=== PATIENT | male | born 1955 | race Caucasian/White ===

== ENCOUNTER → 2022-11-09 | Outpatient (CLI) | payer MEDICARE, MEDICAID, SELFPAY ==
--- NOTE | 2022-11-09 12:41 | US_ITS ---
INDICATION: Thyroid nodule noted on cervical spine CT EXAMINATION: Ultrasound US Thyroid (eg thyroid, parathyroid, parotid) TECHNIQUE: Marcos scale and color doppler imaging was performed of the thyroid gland. COMPARISON: None. FINDINGS: RIGHT THYROID LOBE: 4.2 x 2.3 x 2.7 cm. Mildly heterogeneous echotexture with normal vascularity. [ Nodules: 1. Inferior thyroid 2.5 x 2.5 x 2.3 cm solid hypoechoic nodule wider than tall with smooth margins and no calcification, TI RADS 4. LEFT THYROID LOBE: 4.9 x 2.0 x 2.5 cm. Mildly heterogeneous echotexture with normal vascularity. [ 1. . Inferior mid thyroid 0.6 x 0.3 x 0.6 cm mixed cystic solid hypoechoic nodule wider than tall smooth margins and no calcifications, TI RADS 3 2. Inferior mid thyroid 0.4 x 0.3 x 0.5 cm cm almost completely cystic hypoechoic nodule, wider than tall with smooth margins and no calcifications, TI RADS 2 ISTHMUS: 0.5 cm. Heterogeneous echotexture. No thyroid nodules are present. US/Thyroid IMPRESSION: Multinodular goiter with dominant right inferior thyroid 2.5 cm TI RADS 4 lesion for which fine-needle aspiration for histopathologic diagnosis is recommended Electronically Signed: Farhan Curry MD at 9:36 EDT Reading Location ID and State: [id number] / [place] Tel , Service support ,
== END | disposition home or self-care (01) ==
LOC: US 12:41
PROVIDERS: PCP Internal Medicine; Referring Provider Psychiatry & Neurology Neurology; Visit Provider Psychiatry & Neurology Neurology
DX: E04.1 Nontoxic single thyroid nodule (principal)
CPT/HCPCS: 76536

== ENCOUNTER → 2023-04-04 | Outpatient (CLI) | payer MEDICARE, MEDICAID, SELFPAY ==
[2023-04-04 18:22] LABS: Free T3 1.9 pg/mL (2.18-3.98); Thyroid Stim Hormone (TSH) 0.85 uIU/mL (0.358-3.74)
== END | disposition home or self-care (01) ==
LOC: MTLAB 14:42
PROVIDERS: PCP Internal Medicine; Referring Provider Psychiatry & Neurology Neurology; Visit Provider Psychiatry & Neurology Neurology
DX: E04.1 Nontoxic single thyroid nodule (principal); F03.90 Unspecified dementia, unspecified severity, without behavioral disturbance, psychotic disturbance, mood disturbance, and anxiety
CPT/HCPCS: 36415; 84439; 84443; 84481

== ENCOUNTER 2025-02-13 09:46 | Outpatient (RCR) | payer MEDICARE, MEDICAID, SELFPAY ==
[2025-02-13 10:37] VITALS: BP 146/69; PULSE 48; RESP 18; TEMP 35.8
--- NOTE | 2025-02-13 14:09 | WC ---
PHOTO-LEFT MED 02/13/25
--- NOTE | 2025-02-13 14:12 | WC ---
PHOTO-LEFT LATERAL LE CLUSTER 02/13/25
--- NOTE | 2025-02-13 14:13 | WC ---
PHOTO-LEFT POST LE 02/13/25
--- NOTE | 2025-02-13 14:16 | WC ---
PHOTO-RIGHT MED 02/13/25
--- NOTE | 2025-02-13 14:17 | WC ---
PHOTO-RIGHT POST LE 02/13/25
--- NOTE | 2025-02-13 16:58 | PCM.WC.HP ---
History of Present Illness Date of Service: 02/13/25 Chief Complaint: Bilateral lower extremity ulceration History of Wound: Mr. Cutler is a 69-year-old referred to the wound center following recent vascular procedure. He reports chronic recurrent lower extremity ulcerations which has been ongoing for at least 40 years. Had been following up at a wound center in [place] but has not done that in a few years....? Had a vascular procedure at [facility] about 6 weeks ago and following which, was referred to this facility. He states that for the last 40 years, he has recurrent ulcerations which have been managed at his facility. Has been told that he has calcium deposits in his extremities. Has not been evaluated by dermatology and this is something that he is not open to. Documented history of diabetes mellitus, he is unsure of his control. He states that he feels well otherwise. [facility] Medical History (Updated 02/13/25 @ 17:[address] Josh Green MD) Cutaneous calcification Nonhealing ulcer of multiple sites of right lower extremity with fat layer exposed Nonhealing ulcer of multiple sites of left lower extremity with fat layer exposed Venous ulcer-leg syndrome, bilateral Drooling Cerebrovascular disease Chest pain, unspecified Rhabdomyolysis Edema, unspecified Candidiasis, unspecified History of falling Chronic venous insufficiency Hyperlipidemia Myositis, unspecified Hypotension, unspecified Elevated liver enzymes Weakness Obstructive sleep apnea (adult) (pediatric) Drug-induced obesity Benign essential hypertension Major depressive disorder, recurrent, unspecified Type 2 diabetes mellitus without complications Home Medications ?Medication ?Instructions ?Recorded ?Last Taken ?Type aspirin 81 mg chewable tablet 81 mg PO DAILY 03/19/20 Unknown History fexofenadine 180 mg tablet 180 mg PO DAILY 03/19/20 Unknown History (Rose Mary Allergy) simvastatin 40 mg tablet 40 mg PO QHS 03/19/20 Unknown History tamsulosin 0.4 mg capsule (Flomax) 0.4 mg PO QHS 03/19/20 Unknown History polyethylene glycol 3350 17 17 g PO DAILY 10/26/20 Unknown History gram/dose oral powder (Miralax) donepezil 10 mg tablet 10 mg PO DAILY 01/25/21 Unknown History bisacodyl 5 mg tablet,delayed 5 mg PO QDAY PRN constipation 04/01/24 Unknown History release cyanocobalamin (vitamin B-12) 2,000 mcg PO QDAY 04/01/24 Unknown History 1,000 mcg tablet ergocalciferol (vitamin D2) 1,250 1,250 mcg PO .COMPLEX 04/01/24 Unknown History mcg (50,000 unit) capsule fluoxetine 40 mg capsule 40 mg PO QDAY 04/01/24 Unknown History furosemide 20 mg tablet 40 mg PO QDAY 04/01/24 Unknown History glucagon 1 mg solution for 1 mg subcut ONCE PRN 04/01/24 Unknown History injection hydrocodone-acetaminophen 5-325mg 1 tab PO Q6H PRN 04/01/24 Unknown History 5mg-325mg loperamide 2 mg capsule 2 mg PO QDAY PRN loose stools 04/01/24 Unknown History magnesium hydroxide 2,400 mg/10 mL 30 ml PO QDAY PRN 04/01/24 Unknown History oral suspension (Milk Of Magnesia Concentrated) memantine 14 mg capsule 14 mg PO DAILY #30 ea 04/01/24 Unknown Rx sprinkle,extended release 24hr montelukast 10 mg tablet 10 mg PO QHS 04/01/24 Unknown History multivitamin with minerals 1 tab PO QDAY 04/01/24 Unknown History (Multiple Vitamin-Minerals tablet) oxybutynin chloride 10 mg 5 mg PO BID 04/01/24 Unknown History tablet,extended release 24 hr (Ditropan XL) phenazopyridine 200 mg tablet 200 mg PO TID bladder spasms 04/01/24 Unknown History sennosides 8.6 mg tablet 8.6 mg PO BID PRN 04/01/24 Unknown History sertraline 100 mg tablet 100 mg PO QHS 04/01/24 Unknown History trazodone 100 mg tablet 100 mg PO QHS #30 tabs 04/01/24 Unknown Rx Lactobacillus acidophilus 1 tab PO BID PRN 09/30/24 Unknown History (Acidophilus chewable tablet) acetaminophen 325 mg capsule 650 mg PO Q6H PRN fever or pain 09/30/24 Unknown History (Tylenol) hydrocortisone acetate 25 mg 25 mg DC Q8H PRN 09/30/24 Unknown History rectal suppository (Anusol-HC) midodrine 10 mg tablet 10 mg PO TID 09/30/24 Unknown History nystatin 100,000 unit/gram topical 1 applic topical Q8H PRN 09/30/24 Unknown History powder potassium chloride 20 mEq 40 meq PO DAILY 09/30/24 Unknown History tablet,extended release(part/cryst) sulfamethoxazole 800 1 tab PO .COMPLEX 09/30/24 Unknown History mg-trimethoprim 160 mg tablet (Bactrim DS) carbidopa 25 mg-levodopa 100 mg 2 tab PO .QID #240 tabs 10/06/24 Unknown Rx tablet (Sinemet) Allergy/AdvReac Type Severity Reaction Status Date / Time No Known Allergies Allergy Verified 02/13/25 10:36 Surgical History (Updated 06/16/22 @ 13:04 by Nasra Noyola) No history of previous surgery Social History (Updated 06/16/22 @ 13:05 by Nasra Noyola) Smoking Status: Former smoker second hand exposure: No alcohol intake: never substance use type: does not use guanakito/sabianist: None seatbelt use: always ROS Constitutional Constitutional: Denies fatigue, fever(s), frequent falls, headache(s), lethargy or malaise Eyes Eyes: Denies change in vision, diplopia, discharge from eye(s), double vision, erythema, excessive blinking or exophthalmos ENT HEENT: Denies halitosis, headache(s), hearing loss, hoarseness, lip swelling or mouth pain Cardiovascular Cardiovascular: Denies clubbing, cold extremities, cyanosis, diaphoresis or dyspnea at rest Respiratory/Chest Respiratory/Chest: Denies difficulty clearing secretions, excessive phlegm production, hemoptysis, hoarseness, inability to speak or mouth breathing Gastrointestinal Gastrointestinal: Denies anorexia, bloating, cramping, dry heaves, excessive flatus or hematemesis Genitourinary Genitourinary: Denies abdominal discomfort, anuria or flank pain Musculoskeletal Musculoskeletal: Denies joint swelling, muscle cramps, muscle weakness, tingling or tremors Integumentary Integumentary: Reports bleeding lesions and erythema; Denies changing lesions, non-healing lesions, skin ulcer or skin swelling Neurologic Neurologic: Denies abnormal hearing, abnormal movements, abnormal speech, burning sensations or dizziness Psychiatric Psychiatric: Denies auditory hallucinations, behavioral changes, confusion, tactile hallucinations or visual hallucinations Endocrine Endocrinology: Denies change in body appearance, deepening of the voice, heat intolerance, increase in ring/shoe/hat size or palpitations Hematologic/Lymphatic Hematologic/Lymphatic: Reports easy bleeding Allergic/Immunologic Allergic/Immunologic: Denies lip swelling, rhinitis, throat swelling, tongue swelling, hives or wheezing Vital Signs Vital Signs Vital Signs: 02/13/25 10:37 Temperature 96.5 F L Temperature Source Temporal Pulse Rate 48 L Respiratory Rate 18 Blood Pressure 146/69 H Blood Pressure Mean 94 Blood Pressure Source Monitor Blood Pressure Position Semi-Fowlers Blood Pressure Location Right Forearm Oxygen Delivery Method Room Air Physical Exam Const alert and no apparent distress General Appearance: cooperative and comfortable HEENT normocephalic and head/scalp atraumatic Eyes EOMs intact bilaterally General Eye: normal appearance of both eyes Neck full ROM General: normal visual inspection Resp normal respiratory effort Effort and Inspection: able to speak in complete sentences Skin Wounds: wounds noted size Size: See clinical note, bed other With slough and calcification , margins poorly approximated, no odor, open and surrounding erythema Neuro moves all extremities Sensorium / Orientation: awake and alert Psych mental status grossly normal, thought process normal, cooperative and affect normal Debridement Note Debridement Note Wound debrided: Lower extremity (medial) Type of Debridement: Excisional debridement Anesthesia Used: 5% Lidocaine Gel Depth: Down to and including healthy tissue and in the subcutaneous layer Percentage of wound debrided: 100 Instrument Used: 5mm curette Tissue Removed: Slough and vitalized tissue Severity: Fat Layer Exposed Amount of bleeding with debridement: Mild Bleeding Controlled with: Pressure Patient tolerated procedure: Patient tolerated procedure well Post-Debridement Measurements and Additional Note: Post-Debridement Measurements/Treatment - Nurse 1 - General Ulcer Assessment Start: 02/13/25 10:37 Freq: Status: Active Protocol: KRISTINE Activity Type Activity Date Activity User E-sign Co-sign Detail Recorded Client Recorded Date Recorded By Document 02/13/25 10:37 [id number] 02/13/25 11:04 02/13/25 10:37 - Today's Visit Information Type of service Initial Visit Arrival Mode Wheelchair Transfer Assistance Manual,Other Transfer Assist (Other) walker Patient Identification Verified (Name & Yes ) Vital Signs Temperature (97.8 F-99.1 F) 96.5 F L Temperature Source Temporal Pulse Rate (60-100) 48 L Pulse Location Monitor Respiratory Rate (12-18) 18 Respiratory rate source Observation Oxygen Delivery Method Room Air Blood Pressure (90/60-120/80) 146/69 H Blood Pressure Mean 94 Source Monitor Position Semi-Fowlers Blood Pressure Location Right Forearm History Since Last Visit- (Skip if this is Patient's initial visit) Left Footwear Regular Shoe Right Footwear Regular Shoe Pain Scale: 0-10 Numeric Is Patient Pain Free? No BLE -Alleviating Factors/Interventions Medication, Inactivity/ Resting WC - Nurse 1 - General Ulcer Measurement Start: 02/13/25 10:37 Freq: Status: Active Protocol: Activity Type Activity Date Activity User E-sign Co-sign Detail Recorded Client Recorded Date Recorded By Document 02/13/25 10:37 [id number] 02/13/25 11:04 KW 02/13/25 10:37 Wound Center Nurse 1 R MED LE -Current Size (cm) - Length 1 -Current Size (cm) - Width 1 -Current Size (cm) - Depth 0.1 -Total Square Cm 1 -Date of Last Picture (Recall this 02/13/25 field) -Exudate Amt Medium -Exudate Type Serosanguineous -Wound Margin Distinct, Outline Attached -Granulation Amt Large (67-100%) -Granulation Quality Red -Texture (Anabel-wound Skin Appearance) Assessed -Moisture (Anabel-wound Skin Appearance) Assessed -Color (Anabel-wound Skin Appearance) Assessed, Hemosiderin Staining -Temperature (Anabel-wound Skin No Abnormality Appearance) (Pt Warm) -Tenderness on Palpation (Anabel-wound No Skin Appearance) -Ulcer Cleansing Soap and Water -Foul Odor after Cleansing No -Anesthetic Used 5% Lidocaine Gel R POSTERIOR LEG -Current Size (cm) - Length 2 -Current Size (cm) - Width 1 -Current Size (cm) - Depth 0.1 -Total Square Cm 2 -Date of Last Picture (Recall this 02/13/25 field) -Exudate Amt Medium -Exudate Type Serosanguineous -Wound Margin Distinct, Outline Attached -Granulation Amt Small (1-33%) -Granulation Quality Red -Necrosis Amt Large (67-100%) -Necrotic Tissue Type Adherent Slough -Texture (Anabel-wound Skin Appearance) Assessed -Moisture (Anabel-wound Skin Appearance) Assessed -Color (Anabel-wound Skin Appearance) Assessed, Hemosiderin Staining -Temperature (Anabel-wound Skin No Abnormality Appearance) (Pt Warm) -Tenderness on Palpation (Anabel-wound No Skin Appearance) -Ulcer Cleansing Soap and Water -Foul Odor after Cleansing No -Anesthetic Used 5% Lidocaine Gel R MEDIAL HERNANDEZ -Current Size (cm) - Length 4 -Current Size (cm) - Width 3 -Current Size (cm) - Depth 0.2 -Total Square Cm 12 -Date of Last Picture (Recall this 02/13/25 field) -Exudate Amt Medium -Exudate Type Serosanguineous -Wound Margin Thickened -Granulation Amt Small (1-33%) -Granulation Quality Red -Necrosis Amt Large (67-100%) -Necrotic Tissue Type Adherent Slough -Texture (Anabel-wound Skin Appearance) Assessed -Moisture (Anabel-wound Skin Appearance) Assessed -Color (Anabel-wound Skin Appearance) Assessed, Erythema, Hemosiderin Staining -Temperature (Anabel-wound Skin No Abnormality Appearance) (Pt Warm) -Tenderness on Palpation (Anabel-wound No Skin Appearance) -Ulcer Cleansing Soap and Water -Foul Odor after Cleansing No -Anesthetic Used 5% Lidocaine Gel L POST LE -Current Size (cm) - Length 0.8 -Current Size (cm) - Width 0.5 -Current Size (cm) - Depth 0.1 -Total Square Cm 0.40 -Date of Last Picture (Recall this 02/13/25 field) -Exudate Amt Medium -Exudate Type Serosanguineous -Wound Margin Distinct, Outline Attached -Granulation Amt Small (1-33%) -Granulation Quality Red -Necrosis Amt Large (67-100%) -Necrotic Tissue Type Adherent Slough -Texture (Anabel-wound Skin Appearance) Assessed -Moisture (Anabel-wound Skin Appearance) Assessed -Color (Anabel-wound Skin Appearance) Assessed, Erythema, Hemosiderin Staining -Temperature (Anabel-wound Skin No Abnormality Appearance) (Pt Warm) -Tenderness on Palpation (Anabel-wound No Skin Appearance) -Ulcer Cleansing Soap and Water -Foul Odor after Cleansing No -Anesthetic Used 5% Lidocaine Gel L MED LE -Current Size (cm) - Length 0.8 -Current Size (cm) - Width 0.8 -Current Size (cm) - Depth 0.1 -Total Square Cm 0.64 -Date of Last Picture (Recall this 02/13/25 field) -Exudate Amt Medium -Exudate Type Serosanguineous -Wound Margin Distinct, Outline Attached -Granulation Amt Large (67-100%) -Granulation Quality Red -Texture (Anabel-wound Skin Appearance) Assessed -Moisture (Anabel-wound Skin Appearance) Assessed -Color (Anabel-wound Skin Appearance) Assessed, Erythema, Hemosiderin Staining -Temperature (Anabel-wound Skin No Abnormality Appearance) (Pt Warm) -Tenderness on Palpation (Anabel-wound No Skin Appearance) -Ulcer Cleansing Soap and Water -Foul Odor after Cleansing No -Anesthetic Used 5% Lidocaine Gel LT LAT LE CLUSTER -Current Size (cm) - Length 6 -Current Size (cm) - Width 4 -Current Size (cm) - Depth 0.4 -Total Square Cm 24 -Date of Last Picture (Recall this 02/13/25 field) -Exudate Amt Medium -Exudate Type Serosanguineous -Wound Margin Thickened -Granulation Amt Small (1-33%) -Granulation Quality Red -Necrosis Amt Large (67-100%) -Necrotic Tissue Type Adherent Slough -Texture (Anabel-wound Skin Appearance) Assessed -Moisture (Anabel-wound Skin Appearance) Assessed -Color (Anabel-wound Skin Appearance) Assessed, Erythema, Hemosiderin Staining -Temperature (Anabel-wound Skin No Abnormality Appearance) (Pt Warm) -Tenderness on Palpation (Anabel-wound No Skin Appearance) -Ulcer Cleansing Soap and Water -Foul Odor after Cleansing No -Anesthetic Used 5% Lidocaine Gel Right Calf (cm) 35.5 Right Ankle (cm) 22.5 Left Calf (cm) 37 Left Ankle (cm) 23 WC - Nurse 2 - General Ulcer CM Notes Start: 02/13/25 10:37 Freq: Status: Active Protocol: Activity Type Activity Date Activity User E-sign Co-sign Detail Recorded Client Recorded Date Recorded By Document 02/13/25 11:18 [id number] 02/13/25 11:36 02/13/25 11:18 Wound Center Nurse 2 R POSTERIOR LEG -Time 11:20 -Correct Patient Yes -Correct Side, Site, Position Yes -Correct Procedure Yes -Procedure Performed Yes -Type of Procedure Debridement -Clinical Debridement Subcutaneous -Tissue Removed Subcutaneous -Post Debridement (cm) - Length 4.0 -Post Debridement (cm) - Width 2.0 -Post Debridement (cm) - Depth 0.1 -Total Square (Post) (cm) 8.00 -Area of Debridement (cm) - Length 4.0 -Area of Debridement (cm) - Width 2.0 -Total Square (Area) (cm) 8.00 -Tunneling No -Undermining/Tunneling No -Circular Undermining No -Wound/Ulcer Outcome Not Healed -Ulcer Cleansing Rinsed/ Irrigated with Saline -Foul Odor after Cleansing No -Bioengineered Tissue No -Bleeding Controlled with Pressure -Treatment Response Procedure Tolerated Well -Offloading No -Debridement - Subq, 1st 20sq cm No R MEDIAL HERNANDEZ -Time 11:23 -Correct Patient Yes -Correct Side, Site, Position Yes -Correct Procedure Yes -Procedure Performed Yes -Type of Procedure Debridement -Clinical Debridement Subcutaneous -Tissue Removed Subcutaneous -Post Debridement (cm) - Length 1.2 -Post Debridement (cm) - Width 1.0 -Post Debridement (cm) - Depth 0.1 -Total Square (Post) (cm) 1.20 -Area of Debridement (cm) - Length 1.2 -Area of Debridement (cm) - Width 1.0 -Total Square (Area) (cm) 1.20 -Tunneling No -Undermining/Tunneling No -Circular Undermining No -Wound/Ulcer Outcome Not Healed -Ulcer Cleansing Rinsed/ Irrigated with Saline -Foul Odor after Cleansing No -Bioengineered Tissue No -Bleeding Controlled with Pressure -Treatment Response Procedure Tolerated Well -Offloading No -Debridement - Subq, 20sq cm No L POST LE -Time 11:26 -Correct Patient Yes -Correct Side, Site, Position Yes -Correct Procedure Yes -Procedure Performed Yes -Type of Procedure Debridement -Clinical Debridement Subcutaneous -Tissue Removed Subcutaneous -Post Debridement (cm) - Length 0.7 -Post Debridement (cm) - Width 0.5 -Post Debridement (cm) - Depth 0.1 -Total Square (Post) (cm) 0.35 -Area of Debridement (cm) - Length 0.7 -Area of Debridement (cm) - Width 0.5 -Total Square (Area) (cm) 0.35 -Tunneling No -Undermining/Tunneling No -Circular Undermining No -Wound/Ulcer Outcome Not Healed -Ulcer Cleansing Rinsed/ Irrigated with Saline -Foul Odor after Cleansing No -Bioengineered Tissue No -Bleeding Controlled with Pressure -Treatment Response Procedure Tolerated Well -Offloading No -Debridement - Subq, 20sq cm No L MED LE -Time 11:27 -Correct Patient Yes -Correct Side, Site, Position Yes -Correct Procedure Yes -Procedure Performed Yes -Type of Procedure Debridement -Clinical Debridement Subcutaneous -Tissue Removed Subcutaneous -Post Debridement (cm) - Length 1.0 -Post Debridement (cm) - Width 0.8 -Post Debridement (cm) - Depth 0.1 -Total Square (Post) (cm) 0.80 -Area of Debridement (cm) - Length 1.0 -Area of Debridement (cm) - Width 0.5 -Total Square (Area) (cm) 0.50 -Tunneling No -Undermining/Tunneling No -Circular Undermining No -Wound/Ulcer Outcome Not Healed -Ulcer Cleansing Rinsed/ Irrigated with Saline -Foul Odor after Cleansing No -Bioengineered Tissue No -Bleeding Controlled with Pressure -Treatment Response Procedure Tolerated Well -Offloading No -Debridement - Subq, 1st 20sq cm No LT LAT LE CLUSTER -Time 11:28 -Correct Patient Yes -Correct Side, Site, Position Yes -Correct Procedure Yes -Procedure Performed Yes -Type of Procedure Debridement -Clinical Debridement Subcutaneous -Tissue Removed Subcutaneous -Post Debridement (cm) - Length 7.0 -Post Debridement (cm) - Width 4.0 -Post Debridement (cm) - Depth 0.2 -Total Square (Post) (cm) 28.00 -Area of Debridement (cm) - Length 7.0 -Area of Debridement (cm) - Width 4.0 -Total Square (Area) (cm) 28.00 -Tunneling No -Undermining/Tunneling No -Circular Undermining No -Wound/Ulcer Outcome Not Healed -Ulcer Cleansing Rinsed/ Irrigated with Saline -Foul Odor after Cleansing No -Bioengineered Tissue No -Bleeding Controlled with Pressure -Treatment Response Procedure Tolerated Well -Offloading No -Debridement - Subq, 1st 20sq cm Yes -Debridement, SubQ, ea addt'l 20sq cm 1 or part thereof Pain Scale: 0-10 Numeric Is Patient Pain Free? Yes WC - Nurse 3 - General Ulcer D/C NN Start: 02/13/25 10:37 Freq: Status: Active Protocol: Activity Type Activity Date Activity User E-sign Co-sign Detail Recorded Client Recorded Date Recorded By Document 02/13/25 12:07 RB [id number] 02/13/25 12:13 RB 02/13/25 12:07 Wound Care Center Nurse 3 R POSTERIOR LEG -Ulcer Cleansing Rinsed/ Irrigated with Saline -Primary Dressing Applied Aquacel Extra, Silicone Border Foam 6x6 -Aquacel Extra 1 -Silicone Border Foam 6x6 1 R MEDIAL HERNANDEZ -Ulcer Cleansing Rinsed/ Irrigated with Saline -Primary Dressing Applied Silicone Border Foam 4x4 -Other Dressing AQUACEL EXTRA -Silicone Border Foam 4x4 1 L POST LE -Primary Dressing Applied Silicone Border Foam 6x6 -Other Dressing AQUACEL EXTRA -Silicone Border Foam 6x6 1 L MED LE -Primary Dressing Applied Silicone Border Foam 4x4 -Other Dressing AQUACEL EXTRA -Silicone Border Foam 4x4 1 LT LAT LE CLUSTER -Other Dressing AQUACEL EXTRA / BORDERED FOAM BLE -Tubular Bandage Single Layer -Size of Tubigrip Used Size E -Size E ($) 2 Treatment Response Procedure Tolerated Well Pain Scale: 0-10 Numeric Is Patient Pain Free? Yes WC - Visit Discharge Discharge Condition Stable Ambulatory Status Wheelchair Transportation [facility] Medication Reconcilliation completed & No provided to patient/care provider Clinical Summary of Care Provided Yes Additional Wound Wound debrided: Left lower extremity (posterior lateral cluster) Type of Debridement: Excisional debridement Anesthesia Used: 5% Lidocaine Gel Depth: Down to and including healthy tissue and in the subcutaneous layer Percentage of wound debrided: 100 Instrument Used: 5mm curette Tissue Removed: Slough and vitalized tissue Severity: Fat Layer Exposed Amount of bleeding with debridement: Mild Bleeding Controlled with: Pressure Patient tolerated procedure: Patient tolerated procedure well Additional Wound Wound debrided: Right lower extremity (medial) Type of Debridement: Excisional debridement Anesthesia Used: 5% Lidocaine Gel Depth: Down to and including healthy tissue and in the subcutaneous layer Percentage of wound debrided: 100 Instrument Used: 5mm curette Tissue Removed: Slough and devitalized tissue Severity: Fat Layer Exposed Amount of bleeding with debridement: Mild Bleeding Controlled with: Pressure Patient tolerated procedure: Patient tolerated procedure well Additional Wound Wound debrided: Right lower extremity (posterior lateral) Type of Debridement: Excisional debridement Anesthesia Used: 5% Lidocaine Gel Depth: Down to and including healthy tissue and in the subcutaneous layer Percentage of wound debrided: 100 Instrument Used: 5mm curette Tissue Removed: Slough and devitalized tissue Severity: Fat Layer Exposed Amount of bleeding with debridement: Mild Bleeding Controlled with: Pressure Patient tolerated procedure: Patient tolerated procedure well Additional Wound Wound debrided: Left lower extremity (posterior medial) Type of Debridement: Excisional debridement Anesthesia Used: 5% Lidocaine Gel Depth: Down to and including healthy tissue and in the subcutaneous layer Percentage of wound debrided: 100 Instrument Used: 5mm curette Tissue Removed: Slough and devitalized tissue Severity: Fat Layer Exposed Amount of bleeding with debridement: Mild Bleeding Controlled with: Pressure Patient tolerated procedure: Patient tolerated procedure well Charges/Coding Visit Charges Office Visits / Consults: [id number] OV L3 New 30min Procedures Integumentary [id number]: [id number] Leanna subq tissue 20 sq cm/< Add On Codes: [id number] Leanna subq tissue add-on (x3. Additional square centimeter debrided, please refer to clinical note.) Assessment/Plan Assessment/Plan (1) Venous ulcer-leg syndrome, bilateral: CODE(S): I83.019 - Varicose veins of right lower extremity with ulcer of unspecified site; I83.029 - Varicose veins of left lower extremity with ulcer of unspecified site; L97.919 - Non-pressure chronic ulcer of unspecified part of right lower leg with unspecified severity; L97.929 - Non-pressure chronic ulcer of unspecified part of left lower leg with unspecified severity (2) Nonhealing ulcer of multiple sites of left lower extremity with fat layer exposed: CODE(S): L97.922 - Non-pressure chronic ulcer of unspecified part of left lower leg with fat layer exposed (3) Nonhealing ulcer of multiple sites of right lower extremity with fat layer exposed: CODE(S): L97.912 - Non-pressure chronic ulcer of unspecified part of right lower leg with fat layer exposed (4) Cutaneous calcification: CODE(S): L94.2 - Calcinosis cutis (5) Polyneuropathy: CODE(S): G62.9 - Polyneuropathy, unspecified (6) Dementia: CODE(S): F03.90 - Unspecified dementia, unspecified severity, without behavioral disturbance, psychotic disturbance, mood disturbance, and anxiety QUALIFIERS: Dementia behavioral disturbance: without behavioral disturbance Dementia type: unspecified type Qualified Code(s): F03.90 - Unspecified dementia without behavioral disturbance (7) Parkinson's disease: CODE(S): G20 - Parkinson's disease QUALIFIERS: Dyskinesia presence: without dyskinesia Fluctuating manifestations: unspecified whether manifestations fluctuate Qualified Code(s): G20.A1 - Parkinson's disease without dyskinesia, without mention of fluctuations (8) Chronic venous insufficiency: CODE(S): I87.2 - Venous insufficiency (chronic) (peripheral) (9) Type 2 diabetes mellitus without complications: CODE(S): E11.9 - Type 2 diabetes mellitus without complications (10) Cerebrovascular disease: CODE(S): I67.9 - Cerebrovascular disease, unspecified PLAN: Plan Debridement done as documented above, procedure was well-tolerated. Extensive bilateral lower extremity calcinosis/calcification noted. Lengthy discussion had with patient, unlikely to achieve any form of complete healing given his significant extensive subcutaneous/cutaneous calcinosis. He is aware of this stating that he has had this for about 40 years and is not open to a dermatology referral or any significant workup at this time. His goal of care is just to manage his wounds. He states that this can be done at his facility. Aquacel extra to all open areas cover with Adaptic and foam dressing/gauze. Change daily or twice daily as needed. Single-layer Tubigrip. Elevate lower extremities as tolerated. Continue follow-up with vascular surgeon and follow-up here monthly. Optimize nutrition. He was advised to call with any further questions or concerns. This note was generated with [employer] dictation software. It may contain incorrect words, spelling, and punctuation that were not noted in checking the note before signing.
== END 2025-03-04 23:59 | disposition home or self-care (01) ==
LOC: WC 09:46
PROVIDERS: PCP Internal Medicine; Referring Provider Internal Medicine; Visit Provider Internal Medicine
DX: I83.018 Varicose veins of right lower extremity with ulcer other part of lower leg (principal); L97.812 Non-pressure chronic ulcer of other part of right lower leg with fat layer exposed; I83.028 Varicose veins of left lower extremity with ulcer other part of lower leg; L97.822 Non-pressure chronic ulcer of other part of left lower leg with fat layer exposed; G20.A1 Parkinson's disease without dyskinesia, without mention of fluctuations; F02.80 Dementia in other diseases classified elsewhere, unspecified severity, without behavioral disturbance, psychotic disturbance, mood disturbance, and anxiety; E11.42 Type 2 diabetes mellitus with diabetic polyneuropathy; E11.59 Type 2 diabetes mellitus with other circulatory complications; L94.2 Calcinosis cutis; I87.2 Venous insufficiency (chronic) (peripheral); Z87.891 Personal history of nicotine dependence; I10 Essential (primary) hypertension; Z79.82 Long term (current) use of aspirin; E78.5 Hyperlipidemia, unspecified
CPT/HCPCS: 11042; 11045; 99203; G0463